=== PATIENT | male | born 1975 | race Native Hawaiian/Other Pacific Islander ===

== ENCOUNTER 2019-05-18 09:13 | Outpatient (CLI) | payer BC ==
[~2019-05-18 09:13] MED LIST: ALLO100T22 PO; ATEN50TA36 PO; CIPRO500 MG PO; HYDR5TAB9 PO; OMEP40CA PO
== END 2019-05-18 19:04 | disposition home or self-care (01) ==
LOC: MRI 09:13
DX: M54.17 Radiculopathy, lumbosacral region (principal)

== ENCOUNTER 2022-11-28 20:39 | Emergency (ER) | payer OTHER ==
[~2022-11-28] VITALS: Ht 177.8 cm; Wt 74.8 kg
[2022-11-28 20:50] VITALS: BP 117/79; TEMP 98.2
[2022-11-28 22:30] VITALS: BP 91/51
[2022-11-28 22:31] LABS: PLATELET COUNT 77 K/uL (142-355)
[2022-11-28 22:49] LABS: POTASSIUM 3.3 mmol/L (3.6-5.2)
[2022-11-28 22:52] LABS: PARTIAL THROMBOPLASTIN TIME 34.6 SECONDS (23.9-36.7)
[2022-11-29 00:30] VITALS: BP 111/65
[2022-11-29 03:59] VITALS: BP 90/62; TEMP 98; Ht 177.8 cm; Wt 74.8 kg
[2022-11-29] MEDS ORDERED: PANTOPRAZOLE 40MG TA PO (04:52)
[2022-11-29] MEDS ORDERED: FURO40TA93 PO (04:52)
[2022-11-29] MEDS ORDERED: SPIRONOLACT100 MG PO (04:53)
[2022-11-29] MEDS ORDERED: NADOLOL20 MG PO (04:53)
[2022-11-29 05:52] LABS: PLATELET COUNT 80 K/uL (142-355)
[2022-11-29 05:57] LABS: POTASSIUM 3.5 mmol/L (3.6-5.2)
[2022-11-29 08:00] VITALS: BP 120/82; TEMP 97.3
[2022-11-29 12:00] VITALS: BP 105/64; TEMP 98.3
== END 2022-11-29 12:35 | disposition home or self-care (01) ==
LOC: ED 20:39 → EDIP 11-29 02:35 → ED 11-29 02:35 → EDIP 11-29 02:35 → ED 11-29 12:35 → EDIP 11-29 12:35
PROVIDERS: Family Medicine; Internal Medicine
DX: R18.8 Other ascites (principal); R10.9 Unspecified abdominal pain; I10 Essential (primary) hypertension
CPT/HCPCS: 36415; 80048; 80053; 80061; 83690; 85027; 85610; 85730; 96374; 96375; 99221; 99284; G0378; J1170; J2405; J2550